=== PATIENT | female | born 1960 | race Caucasian/White ===

== ENCOUNTER 2018-04-15 11:28 | Emergency (ER) | payer OTHER ==
[~2018-04-15] VITALS: Ht 167.6 cm; Wt 117.9 kg
[~2018-04-15 11:28] MED LIST: AMLODIPINE BESYL5 MG PO; ASPIRIN325; CRESTOR20 MG PO; DIOVAN HCT 80-1 EACH PO; EFFEXOR XR37.5 MG PO; FOLIC ACID1 MG PO; GLUCOPHAGE1000 MG PO; LEVOTHYROXINE0.2 M1 PO; METOPROLOL SUCC25 M1 PO; MOBIC15 MG PO; NAPROSYN500 MG PO; PREMARIN0.9 M1 PO; TOPAMAX100 MG PO; VITAMIN B-1100 M1 PO; VITAMIN B-650 M1 PO
[2018-04-15] MEDS ORDERED: COZAAR 25 MG TA25 M1 PO (11:51)
[2018-04-15] MEDS ORDERED: GLUCOTROL5 MG PO (11:52)
[2018-04-15] MEDS ORDERED: ASPIR 8181 MG PO (11:52)
[2018-04-15] MEDS ORDERED: LIPITOR80 MG PO (11:52)
[2018-04-15] MEDS ORDERED: EFFEXOR XR75 MG PO (11:53)
[2018-04-15] MEDS ORDERED: FLEXERIL PO (11:54)
[2018-04-15] MEDS ORDERED: PROTONIX40 M1 PO (11:54)
[2018-04-15] MEDS ORDERED: IMITREX100 MG PO (11:55)
[2018-04-15] MEDS ORDERED: ROBAXIN 750 MG750 M1 PO (12:49)
[2018-04-15] MEDS ORDERED: MEDROLDOSEPACK PO (12:49)
[2018-04-15 13:05] VITALS: BP 133/85
== END 2018-04-15 13:07 | disposition home or self-care (01) ==
LOC: M.ERS 11:28
DX: S76.311A Strain of muscle, fascia and tendon of the posterior muscle group at thigh level, right thigh, initial encounter (principal); I10 Essential (primary) hypertension; E78.5 Hyperlipidemia, unspecified; E03.9 Hypothyroidism, unspecified; G43.909 Migraine, unspecified, not intractable, without status migrainosus; Z90.49 Acquired absence of other specified parts of digestive tract; Z90.710 Acquired absence of both cervix and uterus; Z98.890 Other specified postprocedural states; Z90.10 Acquired absence of unspecified breast and nipple; Z86.73 Personal history of transient ischemic attack (TIA), and cerebral infarction without residual deficits; X58.XXXA Exposure to other specified factors, initial encounter; Y93.01 Activity, walking, marching and hiking; Y99.0 Civilian activity done for income or pay; Y99.8 Other external cause status

== ENCOUNTER 2019-10-17 11:32 | Emergency (ER) | payer OTHER ==
[~2019-10-17] VITALS: Ht 167.6 cm; Wt 81.7 kg
[~2019-10-17 11:32] MED LIST changes: +ASPIR 8181 MG PO; +COZAAR 25 MG TA25 M1 PO; +EFFEXOR XR75 MG PO; +FLEXERIL PO; +GLUCOTROL5 MG PO; +IMITREX100 MG PO; +LIPITOR80 MG PO; +MEDROLDOSEPACK PO; +PROTONIX40 M1 PO; +ROBAXIN 750 MG750 M1 PO
[2019-10-17] MEDS ORDERED: IRON18 M1 PO (11:45)
[2019-10-17] MEDS ORDERED: EFFEXOR 5050 MG/1 T1 PO (11:45)
[2019-10-17] MEDS ORDERED: VITAMIN B-121000 MC2 SUBLING (11:45)
[2019-10-17] MEDS ORDERED: VITAMIN C100 MG PO (11:45)
[2019-10-17] MEDS ORDERED: VITAMIN D31 ML PO (11:46)
[2019-10-17] MEDS ORDERED: PROBIOTIC1 EAC7 PO (11:46)
[2019-10-17 12:47] LABS: INFLUENZA A ANTIGEN Negative (Negative); INFLUENZA B ANTIGEN Negative (Negative)
[2019-10-17] MEDS ORDERED: VENTOLIN HFA INH8 GM INH (12:58)
[2019-10-17] MEDS ORDERED: TESSALON PERLE100 M1 PO (12:58)
[2019-10-17] MEDS ORDERED: PREDNISONE 10 M10 M1 PO (12:58)
[2019-10-17 13:16] VITALS: BP 125/90
== END 2019-10-17 13:19 | disposition home or self-care (01) ==
LOC: M.ERS 11:32
PROVIDERS: Nurse Practitioner
DX: J06.9 Acute upper respiratory infection, unspecified (principal); I10 Essential (primary) hypertension; E78.5 Hyperlipidemia, unspecified; E03.9 Hypothyroidism, unspecified; G43.909 Migraine, unspecified, not intractable, without status migrainosus; Z90.710 Acquired absence of both cervix and uterus; Z86.73 Personal history of transient ischemic attack (TIA), and cerebral infarction without residual deficits; Z90.49 Acquired absence of other specified parts of digestive tract

== ENCOUNTER → 2019-11-13 | Outpatient (CLI) | payer OTHER ==
[~2019-11-13] MED LIST changes: +EFFEXOR 5050 MG/1 T1 PO; +IRON18 M1 PO; +PREDNISONE 10 M10 M1 PO; +PROBIOTIC1 EAC7 PO; +TESSALON PERLE100 M1 PO; +VENTOLIN HFA INH8 GM INH; +VITAMIN B-121000 MC2 SUBLING; +VITAMIN C100 MG PO; +VITAMIN D31 ML PO
== END ==
LOC: M.CT 13:00
DX: J84.10 Pulmonary fibrosis, unspecified (principal); R09.89 Other specified symptoms and signs involving the circulatory and respiratory systems